=== PATIENT | male | born 1955 | race Caucasian/White ===

== ENCOUNTER 2022-03-20 21:19 | Observation (INO) | payer OTHER, SELFPAY ==
[2022-03-20] MEDS ORDERED: ONDANSETRON 4 MG/2 ML VIAL IV PRN (21:53)
[2022-03-20] MEDS: MORPHINE 2 MG/ML SYR IV PRN (22:38)
[2022-03-20] MEDS: D5 0.9 NS 1,000 ML IV SCH (22:39)
[2022-03-20 23:10] VITALS: O2SAT 92; BMI 31.8
[2022-03-21 01:46] LABS: Urine Appearance Clear (Clear); Urine Bilirubin Negative (Negative); Urine Blood Negative (Negative); Urine Color Yellow (Yellow); Urine Glucose Negative (Negative); Urine Protein Negative (Negative); Urine Urobilinogen 0.2 mg/dL (0.2-1.0)
[2022-03-21 01:56] LABS: Urine Microscopic Reflex NO UMIC
[2022-03-21 03:56] LABS: Absolute Lymphocytes (CBC) 2.8 K/uL (0.7-4.9); Hematocrit 42.8 % (39.6-49.0); Lymphocytes % 30.3 % (15.3-44.8); MPV 7.4 fL (7.6-11.3); RBC Red Blood Cell Count 4.72 M/uL (4.33-5.43)
[2022-03-21 04:00] LABS: Protime INR 1.03
[2022-03-21 04:13] LABS: Bilirubin Total 0.4 mg/dL (0.2-1.0); Potassium 3.9 mmol/L (3.5-5.1)
--- NOTE | 2022-03-21 07:15 | RAD REPORT ---
EXAM DESCRIPTION: RAD - Chest Pa And Lat (2 Views) - 03/21/2022 5:26 am CLINICAL HISTORY: left knee derangement, chest pain, preprocedure exam COMPARISON: Two view chest 08/20/2020 TECHNIQUE: Frontal and lateral views of the chest were obtained. FINDINGS: The lungs are clear. Heart size is normal and central vasculature is within normal limit s. No pleural effusion or pneumothorax seen. No acute bony finding noted. No aortic abnormality. No significant change from comparison study. IMPRESSION: No acute cardiopulmonary process.
--- NOTE | 2022-03-21 07:23 | RAD REPORT ---
EXAM DESCRIPTION: RAD - Knee Left 2 View - 03/21/2022 4:58 am CLINICAL HISTORY: Left knee derangement, knee pain COMPARISON: No comparisons FINDINGS: No fracture, dislocation or periosteal reaction.Small joint effusion is present. Slight na rrowing of the lateral compartment noted. Minimal lateral compartment marginal spurs are present. Sma ll spurs are present at the margins of the patella articular surface. Soft tissues along the anterior and medial margin knee joint are prominent with the baseline for the patient unknown. Surgical clips are seen presumed to be from pain harvesting. Arterial calcifications are present. IMPRESSION: Knee joint degenerative changes are present along with small joint effusion. Clinical concerns for internal derangement or occult bony injury could be further assessed with MR im aging.
[2022-03-21] MEDS ORDERED: ASPIRIN 81 MG CHEWABLE TABLET PO SCH (09:00)
[2022-03-21] MEDS ORDERED: SERTRALINE HCL 50 MG TAB PO SCH (09:00)
[2022-03-21] MEDS ORDERED: AMLODIPINE 10 MG TAB PO SCH (09:00)
[2022-03-21] MEDS ORDERED: METOPROLOL TAR 50 MG TAB PO SCH (09:00)
[2022-03-21] MEDS ORDERED: MAGNESIUM OXIDE 400 MG TAB PO SCH (09:00)
--- NOTE | 2022-03-21 09:34 | RAD REPORT ---
EXAM DESCRIPTION: MRI - Knee Left Wo Cont - 03/21/2022 8:09 am CLINICAL HISTORY: Anteromedial knee pain, recent knee twisting injury, no recent surgery COMPARISON: Two view left knee same date TECHNIQUE: Sagittal and axial PD and T2 fat sat sequences obtained along with coronal T1 and T2 fat sat sequences. FINDINGS: No occult fracture present. No marrow replacing process identifiable. Approximately 15 mil limeter area of bone bruising or focal edema seen in the lateral most aspect of the lateral femoral c ondyle. Adjacent cortex is intact. Small areas of subcortical degenerative cystic change seen along t he undersurface of the medial and lateral tibial plateaus and the tibial spine. A 2.5 centimeter area of mild bone bruising seen in the posterior aspect of the lateral femoral condyle. Again, the adjace nt cortex is intact. Mild chondral edema noted in the lateral patella facet. Femoral chondromalacia changes are present. N o full-thickness osteochondral defect identified. Anterior cruciate ligament is intact. There is a full-thickness posterior cruciate ligament tear. Dis rosa fibers are not well visualized. This could be a chronic PCL injury. No lateral collateral ligamen t tear seen. Medial collateral ligament tear is evident involving proximal fibers anterior margin. Quadriceps tendon and tendon insertion to the patella are unremarkable. Patella tendon, origin and in sertion are normal. Horizontal tear in the posterior horn and mid body of the medial meniscus. Tear extends to the inferi or articular surface near the free edge. No free or displaced meniscal tissue. Lateral meniscus degen erative signal is present without a tear confirmed. A large joint effusion is present. There are hypointense T1 and T2 strands throughout the joint effus ion with fluid extending into the medial soft tissues adjacent to the medial tibial plateau and media l femoral condyle. Medial patellofemoral ligament cannot be confirmed as intact. IMPRESSION: Medial collateral ligament tear is suspected along the anterior margin of the proximal f ibers. This appears to involve both superficial and deep fibers. Medial patellofemoral ligament tear cannot be excluded. Large joint effusion with fluid extending into the soft tissues along the medial margin of the medial femoral condyle and medial tibial plateau. Hemorrhagic debris within the joint effusion suspected. Posterior horn - mid body medial meniscus tear with no free or displaced meniscal tissue. 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
[2022-03-21] MEDS: MORPHINE 2 MG/ML SYR IV PRN ×2 (09:38→13:47)
--- NOTE | 2022-03-21 11:15 | CON ---
Reason For Consultation: Intractable knee pain. History Of Present Illness: Mr. Foote is a 66-year-old gentleman with some comorbidities who has bliss d progressive knee pain after an injury, now unbearable in nature. He was admitted last night for pa in control. We were asked to consult for this. He is remaining n.p.o. pending any possible surgery. He is currently in the MRI scanner, which I am in agreement with obtaining the study. He will proc eed with recommendations based on MRI findings. We will send a uric acid just on the off chance that he does have gout. It is not uncommon that injury can precipitate a gouty arthropathy. FLORECITA/MODL Voice ID: [id number] Report ID: [id number]
[2022-03-21] MEDS: D5 0.9 NS 1,000 ML IV SCH (12:18)
[2022-03-21 12:50] VITALS: BP 129/66; TEMP 96.7
--- NOTE | 2022-03-21 20:02 | SS ---
Date of Discharge: 03/21/2022 Chief Complaint: Left knee pain. History Of Present Illness: This is a 66-year-old very pleasant male patient, who unfortunately twis marian his left knee while he was trying to get up from the chair and he got his foot tangled up over a cord and twisted his knee where he started to have significant pain in his left knee. He went to [facility] where he had an x-ray of the left knee and no fracture was found. He was released to go home with Medrol Dosepak and tramadol as needed for pain. After his visit to the emergency [facility], he came to see me and he was advised to take his medication as prescribed from the emergency room and come see me in a week for followup. The patient came to office yesterday and reported that his p ain was not improving and he started to have some swelling on the medial aspect of the left knee. He has constant pain, but the pain tends to get worse with standing or walking. His pain got worse yes terday after I saw him and decision was made to admit him to hospital for further evaluation and bishop gemmack of this problem. It is important to know that after calling multiple orthopedic specialists, we were not able to get any appointment for any development disability specialist to see him over next 3-4 weeks. I saw him in this hospital, he was sleeping, easily arousable, not in any distress. Allergies: TO CODEINE AND IODINE. Medications: 1.Amlodipine 10 mg daily. 2.Aspirin 325 mg daily. 3.Atorvastatin 80 mg daily. 4.Vitamin D3 1000 units daily. 5.Metoprolol tartrate 50 mg 2 times a day. 6.Magnesium oxide 400 mg daily. 7.Nitrostat p.r.n. 8.Potassium chloride 99 mg daily. 9.Sertraline 50 mg daily. Review of Systems: Musculoskeletal: Left knee pain. All other systems reviewed and negative. Past Medical History: Significant for hypertension; hyperlipidemia, which is mixed; coronary artery disease; benign prostatic hypertrophy; basal cell carcinoma. Past Surgical History: Coronary artery bypass surgery done in April 2019. Family History: Father and mother both have hypertension. Brother with history of colon cancer. Social History: Prior history of smoking, not at present time. Use of alcohol, occasional. Physical Examination: Vital Signs: His height 5 feet 5 inches, weight 191 pounds, temperature 97.5, pulse 52, respiratory rate 18, blood pressure 129/67, and oxygen saturation 95%. General: Awake, alert, oriented, not in distress. HEENT: Head atraumatic, normocephalic. Conjunctivae nonerythematous. Sclerae white. Mouth, no thr ush or edema noted. Ears/Nose, no mass, lesion, discharge noted. Neck: Supple. No JVD, lymph nodes, bruit, thyromegaly noted. Lungs: Bilateral good equal air entry. Clear to auscultation. No rhonchi. No rales. Heart: Normal heart sounds, no murmur or gallop. Abdomen: Soft, bowel sounds normal. No guarding, rigidity, tenderness, mass, hepatosplenomegaly, dis tention, or bruit noted. Extremities: No leg edema. No calf tenderness. Skin: No rash, ulcer, cellulitis. Lymphatics: No lymph node enlargement in neck, supraclavicular, infraclavicular region. Neuro: No focal neurological deficit. Chest: Unremarkable. External Genitalia: Deferred. Rectal: Deferred. Musculoskeletal: The patient has significant swelling of the left medial knee with painful range of motion. He has large area of bruising involving left medial thigh in mid and lower 1/3rd aspect and also has some bruising on the left lower leg around the ankle and foot on the medial region. Laboratory Data: COVID-19 test negative. Liver function tests unremarkable. Urinalysis normal. Wh ite count 9.2, hemoglobin 15.1, platelets 288. Sodium 137, potassium 3.9, chloride 107, bicarb 27, B UN 26, creatinine 1.13, glucose 106. PT and PTT normal. Chest x-ray unremarkable. Left knee x-ray, no acute traumatic injury. MRI of the left knee done today shows medial collateral ligament tear is suspected, medial patellofemoral ligament tear cannot be excluded. Large joint effusion. Posterior horn midbody medial meniscus tear with no free or displaced meniscal tissue, posterior cruciate is s uspected to be chronic. Hospital Course: After the patient was admitted to the hospital, orthopedic consultation was request ed from Dr. Euceda and details were discussed with him. After an MRI was done, Dr. Euceda review ed MRI and recommended that the patient does not need any surgical intervention and he will not recom mend any intra-articular steroid injection either because of increased risk of infection. The patien t probably has some hemarthrosis with this joint effusion from this trauma and conservative managemen t was recommended by Dr. Euceda. Details were discussed with the patient and there is no need for ongoing hospitalization now, so the patient was discharged to go home and I have instructed him to ap ply ice off and on to the left knee and an PRESTON wrap was placed by nursing staff per order to the left knee and he was instructed to continue to use that and I will see him next week at office for follow up. The patient is requesting refill on his pain medication, tramadol 50 mg 4 times a day as needed for pain, 30 tablets prescription was sent to [facility] and I have also advised him to use meloxicam 15 mg by mouth daily and prescription was sent for 30 tablets. Final Diagnoses: 1.Hemarthrosis, left knee. 2.Medial collateral ligament tear, left knee. 3.Posterior horn medial meniscus tear. 4.Coronary artery disease. 5.Hypertension. 6.Hyperlipidemia. 7.Benign prostatic hypertrophy. TATIANNA/MODL Voice ID: [id number] Report ID: [id number]
[2022-03-21] MEDS ORDERED: ATORVASTATIN 80 MG TAB PO SCH (21:00)
== END 2022-03-21 14:06 | disposition home or self-care (01) ==
LOC: 2ND 21:19 → UNDOADMIN 21:19 → INTOOBSV 21:35 → 2ND 21:35
PROVIDERS: ADMIT Internal Medicine; ATTEND Internal Medicine
DX: M25.062 Hemarthrosis, left knee (principal); M23.222 Derangement of posterior horn of medial meniscus due to old tear or injury, left knee; S83.412A Sprain of medial collateral ligament of left knee, initial encounter; M25.462 Effusion, left knee; I25.10 Atherosclerotic heart disease of native coronary artery without angina pectoris; I10 Essential (primary) hypertension; E78.2 Mixed hyperlipidemia; N40.0 Benign prostatic hyperplasia without lower urinary tract symptoms; Z20.822 Contact with and (suspected) exposure to COVID-19; Z79.82 Long term (current) use of aspirin; Z79.899 Other long term (current) drug therapy; Z88.6 Allergy status to analgesic agent; Z91.041 Radiographic dye allergy status; Z87.891 Personal history of nicotine dependence; Z85.828 Personal history of other malignant neoplasm of skin; Z95.1 Presence of aortocoronary bypass graft; Z82.49 Family history of ischemic heart disease and other diseases of the circulatory system; Z80.0 Family history of malignant neoplasm of digestive organs
CPT/HCPCS: 85025; 36415; 85610; 84550; 85730; 81003; 80053; 71046; 73560; 73721; U0003; J2270 ×3; J7042; G0379; G0378 ×2

== ENCOUNTER 2023-05-17 14:57 | Emergency (ER) | payer OTHER ==
[2023-05-17 16:09] LABS: Absolute Lymphocytes (CBC) 2.2 K/uL (0.7-4.9); Hematocrit 31.8 % (39.6-49.0); Lymphocytes % 25.8 % (15.3-44.8); MCV 89.7 fL (80-100); MPV 8.1 fL (7.6-11.3); Platelets 218 thou/uL (152-406); RBC Red Blood Cell Count 3.55 M/uL (4.33-5.43)
[2023-05-17 16:10] LABS: Protime INR 1.13
[2023-05-17 16:20] LABS: Albumin 3.4 g/dL (3.4-5.0); Bilirubin Direct 0.2 mg/dL (0-0.2); Bilirubin Indirect, Calculated 0.7 mg/dL (0.2-0.8); Bilirubin Total 0.9 mg/dL (0.2-1.0); Potassium 3.5 mEq/L (3.5-5.1); Protein, Total 6.2 g/dL (6.4-8.2); Troponin High Sensitivity 12.8 pg/mL (<58.9)
--- NOTE | 2023-05-17 16:24 | RAD REPORT ---
EXAM DESCRIPTION: Diane Single View05/17/2023 3:53 pm CLINICAL HISTORY: Chest pain COMPARISON: 2021 FINDINGS: The lungs appear clear of acute infiltrate. The heart is normal size. Postsurgical changes involve the chest IMPRESSION: No acute abnormalities displayed
--- NOTE | 2023-05-17 17:22 | RAD REPORT ---
EXAM DESCRIPTION: USExtrempearl Venous Uni Ltd05/17/2023 4:42 pm CLINICAL HISTORY: Right leg pain and swelling. COMPARISON: None. FINDINGS: Right common femoral, superficial femoral, greater saphenous, popliteal and right posterio r tibial veins are compressible and demonstrate augmentation. Doppler demonstrates good flow. Grayscale, color and spectral analysis performed on all vessels IMPRESSION: No evidence of deep venous thrombosis involving the right lower extremity.
--- NOTE | 2023-05-17 17:26 | RAD REPORT ---
EXAM DESCRIPTION: US - Lower Extremity Artery Uni Ltd - 05/17/2023 4:42 pm CLINICAL HISTORY: Leg pain COMPARISON: None FINDINGS: 2 centimeter vascular structure lies anterior to right common femoral artery having the appearance of a pseudo aneurysm. 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
--- NOTE | 2023-05-17 17:33 | RAD REPORT ---
EXAM DESCRIPTION: CT - Abdomen Pelvis Wo Contrast - 05/17/2023 5:11 pm CLINICAL HISTORY: Abdominal pain /right groin pain COMPARISON: 2009 TECHNIQUE: Computed axial tomography of the abdomen and pelvis was obtained. IV and oral contrast we re not requested. All CT scans are performed using dose optimization technique as appropriate and may include automated exposure control or mA/KV adjustment according to patient size. FINDINGS: The evaluation of solid organs, vessels and bowel is limited secondary to the lack of con trast administration. Liver, pancreas and adrenals grossly normal Curvilinear calcification splenic capsule unchanged from prior exam. Spleen grossly normal. Multiple, bilateral renal calculi. Mild right hydronephrosis. 8 millimeter calculus distal right uret er. No evidence diverticulitis. Normal appendix Stranding right inguinal region status post recent catheterization. 2 centimeter round structure ante rior to the right common femoral artery Small umbilical hernia. Spondylosis lumbar spine IMPRESSION: 8 millimeter calculus distal right ureter resulting in mild right hydronephrosis 2 centimeter round structure right inguinal region is shown to represent a pseudo aneurysm on a vascu lar ultrasound May 17, 2023
--- NOTE | 2023-05-17 17:45 | EDPHYS ---
Physician Documentation [facility] Name: Mitch Foote Age: 67 yrs Sex: Male : 1955 Arrival Date: 05/17/2023 Time: 14:57 Bed 7 Private MD: ED Physician Mendoza Stern HPI: 05/17 16:29 This 67 yrs old Male presents to ER via Ambulatory with complaints of Pelvic Pain, Leg sb4 Pain, Hip Pain. 16:29 Patient had a cardiac catheterization done at [facility] 3 days ago. He states sb4 they first attempted the radial artery and were unsuccessful and then attempted the femoral artery and again were unsuccessful. He states that when they pulled the line, they had to hold pressure for almost an hour to control the bleeding. He was observed overnight and discharged home on Plavix. He states that the bruising on his leg has slowly gotten worse. It is on his entire medial right thigh. He endorses pain in the area and does endorse some chest pain and dyspnea on exertion. Historical: - Allergies: 15:16 Iodine; ph 15:16 Codeine; ph - Home Meds: 15:16 metoprolol tartrate 50 mg Oral tablet 2 times per day [Active]; sertraline 100 mg oral ph tablet daily [Active]; amlodipine 10 mg tablet daily [Active]; Laly Low Dose Aspirin 81 mg oral tablet, delayed release (enteric coated) once [Active]; Potassium Chloride Oral [Active]; clopidogrel 75 mg oral tablet daily [Active]; - PMHx: 15:16 Hypertensive disorder; ph - Immunization history:: Adult Immunizations unknown. - Social history:: Smoking status: Patient denies any tobacco usage or history of. ROS: 16:29 Constitutional: Negative for fever, chills, and weight loss, Neuro: Negative for sb4 headache, weakness, numbness, tingling, and seizure. 16:29 Cardiovascular: Positive for chest pain. 16:29 Respiratory: Positive for dyspnea on exertion. 16:29 Skin: Positive for ecchymosis, of the right quadriceps and right upper thigh and medial aspect of right thigh and right inner thigh and right hamstring and right gluteal fold and right femoral area. 16:29 All other systems are negative. Exam: 16:17 ECG was reviewed by the Attending Physician. sb4 16:33 Constitutional: This is a well developed, well nourished patient who is awake, alert, sb4 and in no acute distress. Head/Face: Normocephalic, atraumatic. Eyes: Extra-ocular motions intact. Periorbital areas with no swelling, redness, or edema. ENT: Mucous membranes moist. Cardiovascular: Regular rate and rhythm with a normal S1 and S2. Respiratory: Lungs have equal breath sounds bilaterally, clear to auscultation and percussion. No rales, rhonchi or wheezes noted. No increased work of breathing, no retractions or nasal flaring. Abdomen/GI: Soft, non-tender, no distension. MS/ Extremity: Pulses equal, no cyanosis. Neurovascular intact. Full, normal range of motion. Neuro: Awake and alert, GCS 15, oriented to person, place, time, and situation. Cranial nerves II-XII grossly intact. Motor strength 5/5 in all extremities. Sensory grossly intact. Cerebellar exam normal. Normal gait. 16:33 Skin: Appearance: ecchymosis, noted on the, groin and right quadriceps and right upper thigh and medial aspect of right thigh and right inner thigh and right hamstring and right gluteal fold and right femoral area, that are moderate. Vital Signs: 15:13 BP 134 / 77; Pulse 58; Resp 18; Temp 97.3; Pulse Ox 100% on R/A; Weight 91.63 kg; ph Height 5 ft. 7 in. ; 16:00 BP 134 / 75; Pulse 59; Resp 18; Pulse Ox 98% on R/A; ph 17:30 BP 132 / 78; Pulse 57; Resp 16; Pulse Ox 98% on R/A; ph 18:48 BP 139 / 81; Pulse 55; Resp 16; Pulse Ox 99% on R/A; ph 19:45 BP 148 / 74; Pulse 56; Resp 16; Pulse Ox 99% on R/A; jb4 20:19 BP 148 / 74; Pulse 51; Resp 18; Pulse Ox 99% on R/A; jb4 15:13 Body Mass Index 31.64 (91.63 kg, 170.18 cm) ph MDM: 15:06 Patient medically screened. sb4 17:43 Data reviewed: vital signs, nurses notes, lab test result(s), radiologic studies, I sb4 have discussed the patient's presentation/case with the attending Emergency Department Physician;. Historians other than the Patient: Spouse/Significant Other: . Care significantly affected by the following chronic conditions: Hypertension, CAD. Counseling: I had a detailed discussion with the patient and/or guardian regarding: the historical points, exam findings, and any diagnostic results supporting the discharge/admit diagnosis, lab results, radiology results, the need to transfer to another facility, for higher level of care, [facility] does not immediately have the required specialist. 19:33 Management of patient was discussed with the following: Hospitalist: Hospitalist at [address] 05/17 15:19 Order name: Basic Metabolic Panel; Complete Time: 16:20 [facility] 05/17 15:19 Order name: CBC with Diff; Complete Time: 16:20 [facility] 05/17 15:19 Order name: LFT's; Complete Time: 16:20 [facility] 05/17 15:19 Order name: Magnesium; Complete Time: 16:20 [facility] 05/17 15:19 Order name: NT PRO-BNP; Complete Time: 16:20 [facility] 05/17 15:19 Order name: PT-INR; Complete Time: 16:20 [facility] 05/17 15:19 Order name: Troponin HS; Complete Time: 16:20 [facility] 05/17 15:19 Order name: XRAY Chest (1 view); Complete Time: 16:26 [facility] 05/17 15:19 Order name: Extremity Venous Uni Ltd US; Complete Time: 17:31 [facility] 05/17 15:19 Order name: Lower Extremity Artery Uni Ltd US; Complete Time: 17:31 [facility] 05/17 16:26 Order name: CT Abd/Pelvis - Without Contrast; Complete Time: 17:34 4 05/17 15:19 Order name: EKG; Complete Time: 15:20 [facility] 05/17 15:19 Order name: Cardiac monitoring; Complete Time: 15:48 [facility] 05/17 15:19 Order name: EKG - Nurse/Tech; Complete Time: 15:48 [facility] 05/17 15:19 Order name: IV Saline Lock; Complete Time: 15:48 [facility] 05/17 15:19 Order name: Labs collected and sent; Complete Time: 15:48 [facility] 05/17 15:19 Order name: O2 Per Protocol; Complete Time: 15:48 [facility] 05/17 15:19 Order name: O2 Sat Monitoring; Complete Time: 15:48 sb4 EC:17 Rate is 59 beats/min. Rhythm is regular, Sinus bradycardia with Right bundle branch sb4 block. GA interval is prolonged at 210 msec. QRS interval is normal at 98 msec. QT interval is normal at 426 msec. Interpreted by me. Reviewed by me. Administered Medications: No medications were administered Disposition Summary: 05/17/23 17:44 Transfer Ordered Transfer Location: [facility] sb4 Reason: Higher level of care sb4 Condition: Fair sb4 Problem: new sb4 Symptoms: are unchanged sb4 Accepting Physician: Dr. Barnhart(05/17/23 20:31) jb4 Diagnosis - pseudoaneursym of right femoral artery, 2 cm, s/p cardiac catheterization sb4 Forms: - Medication Reconciliation Form sb4 - SBAR form sb4 Signatures: Dispatcher [employer] EDKylah Arizmendi RN RN ph Bryson, James, RN RN jbJanice Garcia PA-C PA-C sb4 Corrections: (The following items were deleted from the chart) 15:19 15:16 Allergies: clopidogrel; ph ph 16:19 16:17 Rate is 59 beats/min. Rhythm is regular, Sinus bradycardia with Right bundle sb4 branch block. GA interval is prolonged at 210 msec. QRS interval is normal at 98 msec. QT interval is normal at 426 msec. Clinical impression: Abnormal EKG without significant change. Interpreted by me. Reviewed by me. sb4 19:33 17:44 Dr. Sweet sb4 sb4 20:31 19:33 Dr. Barnhart sb4 jb4
--- NOTE | 2023-05-17 17:45 | ER ---
Nurse's Notes [facility] Name: Mitch Foote Age: 67 yrs Sex: Male : 1955 Arrival Date: 05/17/2023 Time: 14:57 Bed 7 Private MD: Diagnosis: pseudoaneursym of right femoral artery, 2 cm, s/p cardiac catheterization Presentation: 05/17 15:13 Chief complaint: Patient states: Had procedure on for cardiac stent placement, ph catheterized to R groin, c/o pain and bruising to area. Coronavirus screen: Vaccine status: Patient reports receiving the 2nd dose of the covid vaccine. Ebola Screen: No symptoms or risks identified at this time. Initial Sepsis Screen: Does the patient meet any 2 criteria? No. Patient's initial sepsis screen is negative. Does the patient have a suspected source of infection? No. Patient's initial sepsis screen is negative. Risk Assessment: Do you want to hurt yourself or someone else? Patient reports no desire to harm self or others. Onset of symptoms was May 17, 2023. 15:13 Method Of Arrival: Ambulatory ph 15:13 Acuity: SOPHIA 3 ph Triage Assessment: 15:19 General: Appears in no apparent distress. Behavior is calm, cooperative, appropriate ph for age. Pain: Complains of pain in right femoral area. Neuro: Level of Consciousness is awake, alert, obeys commands, Oriented to person, place, time, situation. Cardiovascular: Capillary refill < 3 seconds in bilateral fingers Patient's skin is warm and dry. Respiratory: Airway is compromised Respiratory effort is even, unlabored. Derm: Bruising that is dark purple, on right gluteal fold, right hamstring, right inner thigh, medial aspect of right thigh, right upper thigh and right quadriceps. Musculoskeletal: Range of motion: intact in all extremities. Historical: - Allergies: 15:16 Iodine; ph 15:16 Codeine; ph - Home Meds: 15:16 metoprolol tartrate 50 mg Oral tablet 2 times per day [Active]; sertraline 100 mg oral ph tablet daily [Active]; amlodipine 10 mg tablet daily [Active]; Laly Low Dose Aspirin 81 mg oral tablet, delayed release (enteric coated) once [Active]; Potassium Chloride Oral [Active]; clopidogrel 75 mg oral tablet daily [Active]; - PMHx: 15:16 Hypertensive disorder; ph - Immunization history:: Adult Immunizations unknown. - Social history:: Smoking status: Patient denies any tobacco usage or history of. Screenin:29 [facility] ED Fall Risk Assessment (Adult) History of falling in the last 3 months, ph including since admission No falls in past 3 months (0 pts) Confusion or Disorientation No (0 pts) Intoxicated or Sedated No (0 pts) Impaired Gait No (0 pts) Mobility Assist Device Used No (0 pt) Altered Elimination No (0 pt) Score/Fall Risk Level 0 - 2 = Low Risk Oriented to surroundings, Maintained a safe environment, Hourly rounding (assess needs \T\ fall precautionary measures) done. Abuse screen: Denies threats or abuse. Denies injuries from another. Nutritional screening: No deficits noted. Tuberculosis screening: No symptoms or risk factors identified. Assessment: 15:40 Reassessment: Patient is alert, oriented x 3, equal unlabored respirations, skin aa5 warm/dry/pink. 15:59 Reassessment: US at bedside . aa5 19:00 Reassessment: Patient appears in no apparent distress at this time. Patient and/or jb4 family updated on plan of care and expected duration. Pain level reassessed. Patient is alert, oriented x 3, equal unlabored respirations, skin warm/dry/pink. 20:00 Reassessment: Patient appears in no apparent distress at this time. Patient and/or jb4 family updated on plan of care and expected duration. Pain level reassessed. Patient is alert, oriented x 3, equal unlabored respirations, skin warm/dry/pink. Vital Signs: 15:13 BP 134 / 77; Pulse 58; Resp 18; Temp 97.3; Pulse Ox 100% on R/A; Weight 91.63 kg; ph Height 5 ft. 7 in. ; 16:00 BP 134 / 75; Pulse 59; Resp 18; Pulse Ox 98% on R/A; ph 17:30 BP 132 / 78; Pulse 57; Resp 16; Pulse Ox 98% on R/A; ph 18:48 BP 139 / 81; Pulse 55; Resp 16; Pulse Ox 99% on R/A; ph 19:45 BP 148 / 74; Pulse 56; Resp 16; Pulse Ox 99% on R/A; jb4 20:19 BP 148 / 74; Pulse 51; Resp 18; Pulse Ox 99% on R/A; jb4 15:13 Body Mass Index 31.64 (91.63 kg, 170.18 cm) ph ED Course: 14:59 Patient arrived in ED. rg4 15:06 Janice Meyer PA-C is PHCP. sb4 15:06 Mendoza Stern MD is Attending Physician. sb4 15:15 Triage completed. ph 15:28 Arm band placed on Patient placed in an exam room, on a stretcher. ph 15:29 Patient has correct armband on for positive identification. Placed in gown. Bed in low ph position. Side rails up X2. Client placed on continuous cardiac and pulse oximetry monitoring. NIBP monitoring applied. 15:33 Kylah Mccarthy, RN is Primary Nurse. ph 15:40 Initial lab(s) drawn, by tn, sent to lab. Inserted saline lock: 20 gauge in right aa5 wrist, using aseptic technique. Blood collected. 15:55 XRAY Chest (1 view) In Process Unspecified. EDMS 16:44 Extremity Venous Uni Ltd US In Process Unspecified. EDMS 16:44 Lower Extremity Artery Uni Ltd US In Process Unspecified. EDMS 17:13 CT Abd/Pelvis - Without Contrast In Process Unspecified. EDMS 18:11 Transfer request with [facility] initiated. Liz, IRIS spoke to [facility]. mb4 19:01 No provider procedures requiring assistance completed. Patient admitted, IV remains in ph place. 19:[address] Jackson for doc-to-doc. mb4 19:31 facesheet faxed to [facility] per request. mb4 20:05 Spoke to [place] with [facility] for transfer. ETA 25-30min. mb4 Administered Medications: No medications were administered Medication: 15:29 VIS not applicable for this client. ph Outcome: 17:44 ER care complete, transfer ordered by . sb4 20:30 Transferred by ground EMS to [facility], Transfer form completed. X-rays jb4 sent w/ patient. 20:30 Condition: stable 20:30 Discharge instructions given to patient, Instructed on the need for transfer, Demonstrated understanding of instructions. 20:31 Patient left the ED. jb4 Signatures: Dispatcher [employer] Chely Crowell, RN RN aa5 Kylah Mccarthy RN RN Dayanara Dunn rg4 David Lubin RN RN jb4 Zoial Flores mb4 Anabel Montero RN RN kd3 Janice Meyer PA-C PA-C sb4 Corrections: (The following items were deleted from the chart) 15:19 15:16 Allergies: clopidogrel; ph ph 20:30 20:19 BP 148 / 74; Pulse 49bpm; Resp 18bpm; Pulse Ox 99% RA; kd3 jb4
[2023-05-17 20:40] VITALS: TEMP 97.3
[2023-05-17 20:56] VITALS: O2SAT 99
[2023-05-17 20:57] VITALS: BP 148/74
--- NOTE | 2023-05-18 13:11 | EKG ---
Test Date: 2023-05-17 Test Time: 15:42:39 Tobacco Flavorer: PH MEASUREMENT RESULTS: Intervals: Rate: 59 IL: 210 QRSD: 98 QT: 426 QTc: 421 [place]: P: 72 IL: 210 QRS: -10 T: 29 INTERPRETIVE STATEMENTS: Sinus bradycardia with 1st degree AV block Incomplete right bundle branch block Borderline ECG Compared to ECG 06/15/1995 06:51:00 First degree AV block now present Incomplete right bundle-branch block now present Sinus rhythm no longer present Electronically Signed On 05-18-23 13:09:44 CDT by Dilip White
== END 2023-05-17 20:31 | disposition short-term general hospital (02) ==
LOC: ER 14:57 → ERHOLD 19:54 → UNDOADMOB 19:54
DX: I72.4 Aneurysm of artery of lower extremity (principal); Z98.61 Coronary angioplasty status; R07.9 Chest pain, unspecified; I10 Essential (primary) hypertension; Z88.5 Allergy status to narcotic agent; Z91.048 Other nonmedicinal substance allergy status; Z79.82 Long term (current) use of aspirin
CPT/HCPCS: 36415; 71045; 74176; 80048; 80076; 83735; 83880; 84484; 85025; 85610; 93005; 93926; 93971; 99285

== ENCOUNTER 2025-07-05 08:11 | Emergency (ER) | payer OTHER ==
[2025-07-05] MEDS ORDERED: CEFTRIAXONE 1000 MG/VIAL ONE (08:36)
[2025-07-05] MEDS ORDERED: KETOROLAC 30 MG/ML INJ ONE (08:36)
[2025-07-05] MEDS ORDERED: ACETAMINOPHEN 500 MG TAB ONE (08:36)
[2025-07-05] MEDS ORDERED: LIDOCAINE 1% MPF 2 ML AMPULE ONE (08:37)
--- NOTE | 2025-07-05 09:53 | RAD REPORT ---
EXAMINATION: Ankle Left 3 View CLINICAL INDICATION: Male, 69 years old. R/o osteo COMPARISON: No prior exam. FINDINGS: No acute fracture. No malalignment/dislocation. Nonaggressive appearing cystic structure at the distal tibial metaphysis and epiphysis may represent an aneurysmal bone cyst or other benign lesion. MRI could confirm. Small plantar aspect calcaneal spur. Other: No radiographic evidence of osteomyelitis. IMPRESSION: No acute osseous abnormality. See above.
--- NOTE | 2025-07-05 09:55 | EDPHYS ---
Physician Documentation [facility] Name: Mitch Foote Age: 69 yrs Sex: Male : 1955 Arrival Date: 07/05/2025 Time: 08:11 Bed 13 Private MD: ED Physician Saud Klein HPI: 07/05 08:26 This 69 yrs old Male presents to ER via Wheelchair with complaints of Ankle dr5 Injury. 08:26 The patient presents with swelling. The complaints affect the left ankle. Onset: The dr5 symptoms/episode began/occurred gradually. Patient is a six 9-year-old male with history of hypertension coming in with left foot pain and swelling has been going on for the past 2 weeks. Patient also reports that he braced himself with his left lower leg on a cabinet approximately 2 weeks ago and has been keeping it bandaged. Patient denies fever.. Historical: - Allergies: 08:23 Codeine; iw 08:23 Iodine; iw - PMHx: 08:23 Hypertensive disorder; iw ROS: 08:26 Constitutional: as per hpi dr5 Exam: 08:26 Constitutional: This is a well developed, well nourished patient who is awake, alert, dr5 and in no acute distress. Head/Face: Normocephalic, atraumatic. Eyes: Pupils equal round and reactive to light, extra-ocular motions intact. Lids and lashes normal. Conjunctiva and sclera are non-icteric and not injected. Cornea within normal limits. Periorbital areas with no swelling, redness, or edema. Chest/axilla: Normal chest wall appearance and motion. Nontender with no deformity. No lesions are appreciated. Cardiovascular: Regular rate and rhythm with a normal S1 and S2. Normal PMI, no JVD. No pulse deficits. Respiratory: Lungs have equal breath sounds bilaterally, clear to auscultation. No rales, rhonchi or wheezes noted. No increased work of breathing, no retractions or nasal flaring. Back: No spinal tenderness. No costovertebral tenderness. Full range of motion. MS/ Extremity: Pulses equal, no cyanosis. Neurovascular intact. Full, normal range of motion. Neuro: Awake and alert, GCS 15, oriented to person, place, time, and situation. Cranial nerves II-XII grossly intact. Motor strength 5/5 in all extremities. Sensory grossly intact. Cerebellar exam normal. Normal gait. 08:26 Skin: abscess, not appreciated, cellulitis, that is mild, on the anterior aspect of left ankle, Patient has open wound with surrounding redness and tenderness to palpation. When removing Band-Aid, purulent drainage noted. No active discharge., induration, that is mild is noted, Vital Signs: 08:23 BP 143 / 76; Pulse 63; Resp 16; Temp 96.9; Pulse Ox 98% on R/A; Weight 89.36 kg; Height iw 5 ft. 7 in. ; Pain 7/10; 08:23 Body Mass Index 30.85 (89.36 kg, 170.18 cm) iw 08:23 Pain Scale: Adult iw MDM: 08:17 Medical Screening Exam initiated dr5 08:26 Differential diagnosis: sprain, cellulitis, Osteomyelitis. Data reviewed: vital signs, [facility] nurses notes, radiologic studies, plain films. Consideration of Admission/Observation Escalation of care including admission/observation considered. Discussion concern patient found to have osteomyelitis. 08:31 I considered the following discharge prescriptions or medication management in the [facility] emergency department I discussed and recommended Over The Counter medications, Medications were administered in the Emergency Department. See MAR. Test considered but Not performed: Labs: Labs deferred as patient is not febrile or have signs of systemic infection. Historians other than the Patient: Spouse/Significant Other: . Care significantly affected by the following chronic conditions: Hypertension. Care significantly affected by the following Social Determinants of Health: Poor access to healthcare and/or lack of insurance, Poor access to transportation, Problems related to employment. Counseling: I had a detailed discussion with the patient and/or guardian regarding the historical points, exam findings, and any diagnostic results supporting the discharge/admit diagnosis, the presence of at least one elevated blood pressure reading (>120/80) during this emergency department visit, radiology results, the need for outpatient follow up, for definitive care, a family practitioner. Medication response: Rocephin. Response to treatment: the patient's symptoms have markedly improved after treatment, No reaction from Rocephin. 10:01 Independent interpretation of the following test(s) in the Emergency Department X-Ray: dr5 My interpretation is Independent interpretation of x-ray does not reveal osteomyelitis or fracture.. Special discussion: I discussed in detail with the patient the higher chance of wound infection based on his presenting history. Based on the history and exam findings, there is no indication for further emergent testing or inpatient evaluation. I discussed with the patient/guardian the need to see the primary care provider for further evaluation of the symptoms. ED course: X-ray result reviewed and no osteomyelitis noted. Will have patient start antibiotics. Rocephin injection given in ER while waiting for x-ray results. Recommended RICE at home. Increase hydration. Ibuprofen to help with swelling. All questions answered. Strict ER precautions given.. 07/05 08:26 Order name: Ankle Left 3 View XRAY; Complete Time: 09:54 dr5 Administered Medications: 08:46 Drug: Ketorolac IM 30 mg IM once Route: IM; Site: left ventrogluteal; iw 09:53 Follow up: Response: No adverse reaction mb9 08:46 Drug: Acetaminophen PO 1000 mg PO once Route: PO; iw 09:53 Follow up: Response: No adverse reaction mb9 08:46 Drug: Rocephin (cefTRIAXone) IM 1 grams IM once Route: IM; Site: left ventrogluteal; iw 09:53 Follow up: Response: No adverse reaction mb9 Disposition: 11:57 I was immediately available on-site in the Emergency Department for consultation in the ms3 care of the patient. Disposition Summary: 07/05/25 09:54 Discharge Ordered Notes: Location: Home dr5 Condition: Stable dr5 Diagnosis - Cellulitis of left lower limb dr5 Followup: dr5 - With: Emergency Department - When: As needed - Reason: Worsening of condition Followup: dr5 - With: Private Physician - When: 1 - 2 days - Reason: Recheck today's complaints, Continuance of care, Re-evaluation by your physician Discharge Instructions: - Discharge Summary Sheet dr5 - Cellulitis, Adult dr5 Forms: - Medication Reconciliation Form dr5 - Antibiotic Education dr5 - Prescription Opioid Use dr5 - Patient Portal Instructions dr5 - Leadership Thank You Letter dr5 Prescriptions: - Doxycycline Hyclate 100 mg Oral Tablet - take 1 tablet ORAL route every 12 hours; 20 tablet; Refills: 0, Product dr5 Selection Permitted - Tramadol 50 mg Oral Tablet - take 1 tablet ORAL route every 8 hours as needed; 12 tablet; Refills: 0, dr5 Product Selection Permitted Signatures: Dispatcher [employer] EDMS Dominique Heller RN RN Saud Rosas DO DO ms3 Kenneth Mena FNP-C KNOTTING MACHINE OPERATOR PORTABLE-Cdr5 Kay Casas RN mb9 Corrections: (The following items were deleted from the chart) 10:03 10:01 Independent interpretation of the following test(s) in the Emergency Department dr5 X-Ray: My interpretation is Independent termination of x-ray does not reveal osteomyelitis or fracture.. dr5
--- NOTE | 2025-07-05 09:55 | ER ---
Nurse's Notes [facility] Name: Mitch Foote Age: 69 yrs Sex: Male : 1955 Arrival Date: 07/05/2025 Time: 08:11 Bed 13 Private MD: Diagnosis: Cellulitis of left lower limb Presentation: 07/05 08:22 Chief complaint: Patient states: pain to left ankle since last night, has a previous iw injury after hitting ankle on crate 2 weeks ago. Coronavirus screen: At this time, the client does not indicate any symptoms associated with coronavirus-19. Ebola Screen: No symptoms or risks identified at this time. Risk Assessment: Do you want to hurt yourself or someone else? Patient reports no desire to harm self or others. 08:22 Method Of Arrival: Wheelchair iw 08:22 Acuity: SOPHIA 3 iw 08:23 Initial Sepsis Screen: Does the patient meet any 2 criteria? No. Patient's initial iw sepsis screen is negative. Does the patient have a suspected source of infection? No. Patient's initial sepsis screen is negative. Onset of symptoms was July 04, 2025. Historical: - Allergies: 08:23 Codeine; iw 08:23 Iodine; iw - PMHx: 08:23 Hypertensive disorder; iw Screenin:59 [facility] ED Fall Risk Assessment (Adult) History of falling in the last 3 months, iw including since admission No falls in past 3 months (0 pts) Confusion or Disorientation No (0 pts) Intoxicated or Sedated No (0 pts) Impaired Gait No (0 pts) Mobility Assist Device Used No (0 pt) Altered Elimination No (0 pt) Score/Fall Risk Level 0 - 2 = Low Risk Oriented to surroundings, Maintained a safe environment. Abuse screen: Denies threats or abuse. Nutritional screening: No deficits noted. Tuberculosis screening: No symptoms or risk factors identified. Assessment: 08:25 General: Appears in no apparent distress. Behavior is calm, cooperative. Pain: iw Complains of pain in left leg and anterior aspect of left ankle Pain currently is 10 out of 10 on a pain scale. Neuro: Level of Consciousness is awake, alert, obeys commands, Oriented to person, place, time, situation, Moves all extremities. Derm: Skin Wound noted left medial ankle. Musculoskeletal: Range of motion: limited in left ankle Swelling present in left leg and anterior aspect of left ankle. Vital Signs: 08:23 BP 143 / 76; Pulse 63; Resp 16; Temp 96.9; Pulse Ox 98% on R/A; Weight 89.36 kg; Height iw 5 ft. 7 in. ; Pain 04/13; 08:23 Body Mass Index 30.85 (89.36 kg, 170.18 cm) iw 08:23 Pain Scale: Adult ED Course: 08:17 Patient arrived in ED. al6 08:17 Kenneth Mena FNP-C is PHCP. dr5 08:17 Saud Klein DO is Attending Physician. dr5 08:23 Triage completed. iw 08:24 Arm band placed on. iw 08:28 Dominique Heller, RN is Primary Nurse. iw 09:36 Ankle Left 3 View XRAY In Process Unspecified. EDMS 10:04 No provider procedures requiring assistance completed. Patient did not have IV access mb9 during this emergency room visit. Administered Medications: 08:46 Drug: Ketorolac IM 30 mg IM once Route: IM; Site: left ventrogluteal; iw 09:53 Follow up: Response: No adverse reaction mb9 08:46 Drug: Acetaminophen PO 1000 mg PO once Route: PO; iw 09:53 Follow up: Response: No adverse reaction mb9 08:46 Drug: Rocephin (cefTRIAXone) IM 1 grams IM once Route: IM; Site: left ventrogluteal; iw 09:53 Follow up: Response: No adverse reaction mb9 Outcome: 09:54 Discharge ordered by MD. dr5 10:04 Discharged to home via wheelchair, mb9 10:04 Condition: stable 10:04 Discharge instructions given to patient, Instructed on discharge instructions, follow up and referral plans. Demonstrated understanding of instructions, follow-up care, medications, Prescriptions given X 2, 10:04 Patient left the ED. mb9 Signatures: Dispatcher [employer] EDMS Dominique Heller RN RN iw Wilkerson, Mary Beth, RN RN mb9 Kenneth Mena FNP-C FNP-Cdr5 Paola Durant al6
[2025-07-05 10:09] VITALS: BP 143/76; TEMP 96.9; O2SAT 98
== END 2025-07-05 10:04 | disposition home or self-care (01) ==
LOC: ER 08:11
DX: L03.116 Cellulitis of left lower limb (principal); I10 Essential (primary) hypertension; Z88.5 Allergy status to narcotic agent
CPT/HCPCS: 73610; 96372; 99284; J0696